=== PATIENT | female | born 1985 | race Caucasian/White ===

== ENCOUNTER → 2019-02-07 | Outpatient (REF) | payer OTHER | LOC: M LAB REF 16:45 | PROVIDERS: ATTEND Physician Assistant | DX: N39.0 Urinary tract infection, site not specified (principal) ==

== ENCOUNTER → 2019-02-25 | Outpatient (REF) | payer OTHER | LOC: M SFHCLERA 14:25 | PROVIDERS: ATTEND Nurse Practitioner Family | DX: R59.0 Localized enlarged lymph nodes (principal) ==